=== PATIENT | male | born 1965 | race Caucasian/White ===

== ENCOUNTER 2021-07-20 20:10 | Emergency (ER) | payer SELFPAY ==
[~2021-07-20] VITALS: Ht 182.9 cm; Wt 104.0 kg
[2021-07-20] MEDS ORDERED: IBUPROFEN 600MG TABLET PO ONE (22:30)
[2021-07-21] MEDS ORDERED: ACET-2708 MT (00:08)
[2021-07-21] MEDS ORDERED: NAPR-1176 MT (00:08)
[2021-07-21 01:05] VITALS: BP 125/84
== END 2021-07-21 01:10 | disposition home or self-care (01) ==
LOC: ER 20:10
DX: M25.571 Pain in right ankle and joints of right foot (principal); M54.50 Low back pain, unspecified; I10 Essential (primary) hypertension; W01.0XXA Fall on same level from slipping, tripping and stumbling without subsequent striking against object, initial encounter; Y93.89 Activity, other specified; Y92.480 Sidewalk as the place of occurrence of the external cause
CPT/HCPCS: 72100; 73610; 99284